=== PATIENT | male | born 1955 | race Caucasian/White ===

== ENCOUNTER 2024-05-10 01:14 | Emergency (ER) | payer MEDICARE, OTHER ==
[2024-05-10] MEDS ORDERED: NA CHLORIDE 0.9% 2,000 ML ONE (02:05)
[2024-05-10] MEDS ORDERED: NA CHLORIDE 0.9% 100 ML ONE (02:05)
[2024-05-10] MEDS ORDERED: Meropenem 1000 MG/VIAL IV ONE (02:05)
[2024-05-10 02:39] LABS: Absolute Basophils 0.1 K/uL (0-0.5); Absolute Lymphocytes (CBC) 1.5 K/uL (0.7-4.9); Absolute Monocytes 1.2 K/uL (0.1-1.3); Absolute Neutrophil 7.2 K/uL (1.8-8.0); Basophils % 0.7 % (0-1.3); Eosinophils % 0.5 % (0-4.4); Hematocrit 24.4 % (39.6-49.0); Hemoglobin 8.4 g/dL (13.6-17.9); Lymphocytes % 14.5 % (15.3-44.8); MCH 31.9 pg (27.0-35.0); MCHC 34.3 g/dL (32.0-36.0); MCV 93.2 fL (80-100); MPV 6.3 fL (7.6-11.3); Monocytes % 11.9 % (3.3-12.3); Neutrophils % 72.4 % (41.7-73.7); Nucleated Red Blood Cells % 0.1 % (0-0); Platelets 279 thou/uL (152-406); RBC Red Blood Cell Count 2.62 M/uL (4.33-5.43); Red Cell Distribution Width 19.8 % (12.1-15.2)
[2024-05-10 02:43] LABS: PT Prothrombin Time 13.5 SECONDS (9.4-12.5); PTT, Activated Partial Thromb 32.7 SECONDS (24.3-36.9); Protime INR 1.21
[2024-05-10 02:49] LABS: Albumin 1.7 g/dL (3.4-5.0); Albumin/Globulin Ratio 0.3 (1.1-1.8); Anion Gap 6.1 mEq/L (5.0-15.0); Bilirubin Total 0.7 mg/dL (0.2-1.0); Globulin 6.4 g/dL (2.3-3.5); Potassium 4.1 mEq/L (3.5-5.1); Protein, Total 8.1 g/dL (6.4-8.2)
[2024-05-10 03:32] LABS: Specific Gravity 1.017 (1.005-1.030); Sqamous Epithelial None Seen /HPF (None Seen); Urine Bacteria None Seen /HPF (<20); Urine Bilirubin NEGATIVE (Negative); Urine Blood 3+ (OVER) (Negative); Urine Clarity Extremely Turbid (Clear); Urine Color Brown (Yellow); Urine Crystals Unidentified Moderate /HPF (None Seen); Urine Culture Reflex Order NOT NEEDED; Urine Glucose NEGATIVE (Negative); Urine Ketones NEGATIVE (Negative); Urine Microscopic Reflex YN ORDER UMIC; Urine Nitrite NEGATIVE (Negative); Urine Protein 2+ (Negative); Urine RBC >50 /HPF (None Seen); Urine Urobilinogen Normal (Normal); Urine pH 6.5 (5.0-7.0)
[2024-05-10] MEDS ORDERED: METOCLOPRAMIDE 10 MG/2mL INJ ONE (04:21)
[2024-05-10] MEDS ORDERED: HYDROMORPHONE HCL 0.5 MG/0.5 ML INJ ONE (04:21)
--- NOTE | 2024-05-10 06:07 | ER ---
Nurse's Notes [facility] Name: Shine Castañeda Age: 68 yrs Sex: Male : 1955 Arrival Date: 05/10/2024 Time: 01:14 Bed 8 Private MD: Diagnosis: Left groin postoperative wound dehiscence, chronic scrotal rash and ulcerations, scrotal cellulitis, stage I decubitus sacral ulcer, postoperative complications, bleeding from postoperative incision, acute hematuria Presentation: 05/10 01:17 Chief complaint: EMS states: 68 YEAR OLD MALE COMING FROM [facility]. ha1 NURSE AT THE FACILITY REPORTS HE WAS FOUND ON THE FLOOR SITTING ON A LOT OF BLOOD, PATIENT GOT CLEAN BUT THE SOURCE OF BLEEDING WAS NOT FOUND. SWELLING AND SKIN TEAR AT THE SCROTUM. 01:17 Coronavirus screen: Vaccine status: Patient reports being unvaccinated. Ebola Screen: ha1 No symptoms or risks identified at this time. Initial Sepsis Screen: Does the patient meet any 2 criteria? No. Patient's initial sepsis screen is negative. Does the patient have a suspected source of infection? No. Patient's initial sepsis screen is negative. Risk Assessment: Do you want to hurt yourself or someone else? Patient reports no desire to harm self or others. Onset of symptoms was May 10, 2024. 01:17 Method Of Arrival: EMS: [facility] ha1 01:17 Acuity: ROWAN 3 ha1 Triage Assessment: 01:17 General: Appears uncomfortable, Behavior is calm, cooperative. Pain: Complains of pain ha1 in buttocks and pelvis Pain does not radiate. Pain currently is 8 out of 10 on a pain scale. Quality of pain is described as aching. Neuro: Level of Consciousness is awake, alert, obeys commands, Oriented to person, place, time, situation. Cardiovascular: Capillary refill < 3 seconds Patient's skin is warm and dry. Respiratory: Airway is patent Respiratory effort is even, unlabored, Respiratory pattern is regular, symmetrical, Breath sounds with crackles bilaterally. GI: Abdomen is round. : Harrington in place to gravity drainage RED URINE IN HARRINGTON BAG Lesions noted Swelling noted at urinary meatus on penis on scrotum. Derm: Wound noted groin. Musculoskeletal: Historical: - Allergies: :17 No Known Allergies; ha1 - Home Meds: 01:35 Bactrim DS Oral [Active]; Aspirin Oral [Active]; enoxaparin 40 mg/0.4 mL subcutaneous ha1 Syringe [Active]; Levaquin Oral 750 mg [Active]; Lipitor 80 mg Oral tablet [Active]; Protonix 40 mg Oral granules delayed release for susp packet [Active]; [id number] [Active]; - PMHx: 01:17 Coronary atherosclerosis; Abdominal aortic aneurysm; Chronic obstructive lung disease; ha1 Cellulitis; OF GROIN; UTI; HEMATURIA; Hypertensive disorder; PERITONITIS; Cirrhosis of liver; Anemia; Pneumonia; - PSHx: 01:17 BILATERAL AORTA FEMORAL BYPASS; Colostomy; ha1 - Immunization history:: Adult Immunizations not up to date. - Infectious Disease History:: Denies. - Social history:: Smoking status: Patient/guardian denies using tobacco, the patient reports quitting approximately 1 years ago. - Family history:: not pertinent. Screenin:41 [facility] ED Fall Risk Assessment (Adult) History of falling in the last 3 months, bm8 including since admission Yes- fall prone (multiple falls) (3 pts) Confusion or Disorientation No (0 pts) Intoxicated or Sedated No (0 pts) Impaired Gait Yes (1 pt) Mobility Assist Device Used Yes (1 pt) Altered Elimination Yes (1 pt) Score/Fall Risk Level 3 or more points = High Risk Oriented to surroundings, Maintained a safe environment, Educated pt \T\ family on fall prevention, incl call for assistance when getting out of bed, Assessed \T\ reinforced patient's understanding of fall precautions, Hourly rounding (assess needs \T\ fall precautionary measures) done, Used ambulatory aids as needed (educated on \T\ assisted with), Used gait belt as appropriate Implemented a Fall Risk Plan of Care. Abuse screen: Denies threats or abuse. Nutritional screening: No deficits noted. Tuberculosis screening: No symptoms or risk factors identified. Assessment: 01:17 Reassessment: see triage assessment. ha1 02:00 Reassessment: Patient and/or family updated on plan of care and expected duration. Pain ha1 level reassessed. 02:57 Reassessment: Patient appears in no apparent distress at this time. No changes from bm8 previously documented assessment. Patient and/or family updated on plan of care and expected duration. Pain level reassessed. Patient is alert, oriented x 3, equal unlabored respirations, skin warm/dry/pink. 04:36 General: Appears in no apparent distress. comfortable, Behavior is calm, cooperative, bm8 appropriate for age. Pain: Denies pain. Neuro: No deficits noted. Level of Consciousness is awake, alert, obeys commands, Oriented to person, place, time, situation, Appropriate for age. Cardiovascular: Denies chest pain, Capillary refill < 3 seconds Patient's skin is warm and dry. Respiratory: Airway is patent Respiratory effort is even, unlabored, Respiratory pattern is regular, symmetrical, Breath sounds are coarse bilaterally. GI: post sx abd wound present, and was redressed. : No signs and/or symptoms were reported regarding the genitourinary system. EENT: No signs and/or symptoms were reported regarding the EENT system. Derm: Wound noted Other: post sx incisions site along outer abd and middline abd. Musculoskeletal: No signs and/or symptoms reported regarding the musculoskeletal system. 05:52 Reassessment:. bm8 06:18 Reassessment: report given to receiving nurse at [facility]. ANGELA Georges. ha1 Vital Signs: 01:17 BP 151 / 72; Pulse 86; Resp 19 S; Temp 99.4(O); Pulse Ox 99% on R/A; Weight 65.5 kg ha1 (M); Height 5 ft. 8 in. ; 01:40 BP 140 / 72; Pulse 87; Resp 87 S; Pulse Ox 100% on R/A; ha1 02:00 BP 152 / 63; Pulse 86; Resp 17 S; Pulse Ox 100% on R/A; ha1 02:57 BP 166 / 72; Pulse 87; Resp 17; Pulse Ox 100% ; Pain 4/10; bm8 03:30 BP 158 / 73; Pulse 90; Resp 17 S; Pulse Ox 99% on R/A; ha1 04:36 BP 134 / 75; Pulse 88; Resp 18; Temp 99.2; Pulse Ox 100% ; Pain 0/10; bm8 05:00 BP 153 / 62; Pulse 85; Resp 17 S; Pulse Ox 97% on R/A; ha1 05:52 BP 130 / 67; Pulse 84; Resp 17; Temp 99.2; Pulse Ox 97% on R/A; Pain 0/10; bm8 06:27 BP 135 / 85; Pulse 74; Resp 18; Temp 99; Pulse Ox 98% ; Pain 0/10; bm8 01:17 Body Mass Index 21.96 (65.50 kg, 172.72 cm) ha1 02:57 Pain Scale: Adult bm8 04:36 Pain Scale: Adult bm8 05:52 Pain Scale: Adult bm8 06:27 Pain Scale: Adult bm8 [place] Coma Score: 01:41 Eye Response: spontaneous(4). Motor Response: obeys commands(6). Verbal Response: bm8 oriented(5). Total: 15. 02:57 Eye Response: spontaneous(4). Motor Response: obeys commands(6). Verbal Response: bm8 oriented(5). Total: 15. 03:59 Eye Response: spontaneous(4). Motor Response: obeys commands(6). Verbal Response: sp4 oriented(5). Total: 15. 04:36 Eye Response: spontaneous(4). Motor Response: obeys commands(6). Verbal Response: bm8 oriented(5). Total: 15. 05:52 Eye Response: spontaneous(4). Motor Response: obeys commands(6). Verbal Response: bm8 oriented(5). Total: 15. ED Course: 01:17 Patient arrived in ED. ha1 01:24 Triage completed. ha1 01:27 Harrington cath inserted, using sterile technique, Harrington cath removed intact, balloon bm8 deflated. 01:37 Gama Hightower, RN is Primary Nurse. bm8 01:38 No provider procedures requiring assistance completed. Inserted saline lock: 18 gauge bm8 in left antecubital area, using aseptic technique. ,using aseptic technique. Ultrasound guided Blood collected. Flushed with 10 mL NS. 01:41 Patient has correct armband on for positive identification. Placed in gown. Bed in low bm8 position. Call light in reach. Side rails up X2. Client placed on continuous cardiac and pulse oximetry monitoring. NIBP monitoring applied. bunch trimmer mold on. Pulse ox on. NIBP on. Door closed. Noise minimized. Warm blanket given. Pillow given. Verbal reassurance given. Head of bed elevated. 01:41 Arm band placed on right wrist. bm8 01:48 Serg Moran MD is Attending Physician. al5 02:05 Blood Culture Adult (2) Sent. ha1 02:05 CBC with Diff Sent. ha1 02:05 CMP Sent. ha1 02:05 Lactate w/ 2H reflex if indic. Sent. ha1 02:05 Protime (+inr) Sent. ha1 02:05 Ptt, Activated Sent. ha1 02:15 Second set of blood cultures drawn by me, Urine collected: clean catch specimen, gemma bm8 blood, EKG done, by ED staff, reviewed by Serg Moran MD. 02:59 Harrington cath inserted, using sterile technique, 16 Fr., by ED staff, balloon inflated, to bm8 gravity drainage, urine specimen collected. Patient tolerated well. 03:01 Chest Single View XRAY In Process Unspecified. EDMS 03:04 X-ray completed. Portable x-ray completed in exam room. Patient tolerated procedure mh1 well. 04:08 Dressings: ABD pad X 2; epigastric area, umbilical area and suprapubic area. ty 04:18 CT Chest Abdomen Pelvis W/O Contrast In Process Unspecified. EDMS 06:21 Wound care: to decubitus located on abdomen and pelvis was cleaned with soap and water, bm8 dressed with 4X4s, Patient tolerated well. 06:23 IV discontinued, intact, bleeding controlled, No redness/swelling at site. Pressure bm8 dressing applied. 06:23 Provided Education on: post er care, and need for constant wound care. bm8 Administered Medications: 02:16 Drug: Meropenem IV 1 grams IV at calculated rate once; (mix in NS 100 mL) Route: IV; bm8 Rate: calculated rate; Site: left antecubital; 03:00 Follow up: Response: No adverse reaction; IV Status: Completed infusion; IV Intake: bm8 100ml 02:19 Drug: NS 0.9% IV (30 ml/kg) 30 ml/kg IV at bolus once; Sepsis Protocol Route: IV; Rate: bm8 bolus; Site: left antecubital; 05:53 Follow up: Response: No adverse reaction; IV Status: Completed infusion; IV Intake: bm8 2000ml 04:35 Drug: metoCLOPramide IVP 10 mg IVP once; over 1 to 2 minutes Route: IVP; Site: left bm8 antecubital; 05:53 Follow up: Response: No adverse reaction bm8 04:36 Drug: HYDROmorphone IVP 0.5 mg IVP once Route: IVP; Site: left antecubital; bm8 05:53 Follow up: Response: No adverse reaction bm8 Medication: 01:41 VIS not applicable for this client. bm8 Intake: 03:00 IV: 100ml; Total: 100ml. bm8 05:53 IV: 2000ml; Total: 2100ml. bm8 Outcome: 06:07 Discharge ordered by MD. mccollum 06:21 Discharged to [facility]. Report called to ANGELA Georges bm8 06:21 Condition: stable 06:21 Discharge instructions given to patient, [facility], Instructed on discharge instructions, follow up and referral plans. no drinking with medication, no driving heavy equipment, medication usage, safety practices, wound care, Demonstrated understanding of instructions, follow-up care, medications, 06:27 Patient left the ED. bm8 Signatures: Dispatcher [employer] EDMS Kenyatta Tineo 1 Rosario Saunders RN RN ha1 Serg Moran MD MD sp4 Gold Arteaga Brad RN RN bm8 Jammie Owen RN RN al5
--- NOTE | 2024-05-10 06:07 | EDPHYS ---
Physician Documentation [facility] Name: Shine Castañeda Age: 68 yrs Sex: Male : 1955 Arrival Date: 05/10/2024 Time: 01:14 Bed 8 Private MD: ED Physician Serg Moran HPI: 05/10 03:59 This 68 yrs old Male presents to ER via EMS with complaints of Rectal sp4 Bleeding. 03:59 This is 68-year-old male who presents from half-way with complaint of some sort of sp4 bleeding.. care home personnel were not able to report where the bleeding is from. Patient has history of COPD, hypertension, stroke, abdominal aortic aneurysm, gastrostomy tube, recent hospitalization at [facility] for abdominal aortic aneurysm with leak, history of multiple vascular surgery, history of colostomy, history of scrotal edema indwelling Fernandez catheter scrotal excoriations.. Further medical history includes history of scrotal cellulitis, UTI, cirrhosis, ascites, AAA, COPD, coronary artery disease, hypertension. Last admission to [facility] 05/01/2024 for scrotal cellulitis. Patient is full code. 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 History of aortobifemoral bypass graft, aortorenal bypass, bilateral lower extremity EIA, BALL WINDER, PFA, endarterectomy patch angioplasty, inferior mesenteric artery reimplantation complicated by ischemic colitis. Required exploratory laparotomy with creation of colostomy and finding of necrotic rectosigmoid colon. History of pneumonia, MAISHA, shock liver, hematuria, scrotal swelling,. Patient's medications include aspirin 81 daily, Bactrim twice daily, Sinex MAR daily, enoxaparin daily, Levaquin 750 daily, Lipitor 80 mg daily, metoprolol twice daily, nicotine daily, polyethylene glycol every 12 and Protonix daily. The patient has no idea why he is here. Patient states he was sent here by the half-way. Patient is a resident of [facility], primary MD is Dr. Michael Salgado. Medications include at this time aspirin daily, atorvastatin daily, cefdinir 300 twice daily, metoprolol 25 twice daily, nicotine daily, Protonix daily, wound care daily,. Historical: - Allergies: 01:17 No Known Allergies; ha1 - Home Meds: 01:35 Bactrim DS Oral [Active]; Aspirin Oral [Active]; enoxaparin 40 mg/0.4 mL subcutaneous ha1 Syringe [Active]; Levaquin Oral 750 mg [Active]; Lipitor 80 mg Oral tablet [Active]; Protonix 40 mg Oral granules delayed release for susp packet [Active]; [id number] [Active]; - PMHx: 01:17 Coronary atherosclerosis; Abdominal aortic aneurysm; Chronic obstructive lung disease; ha1 Cellulitis; OF GROIN; UTI; HEMATURIA; Hypertensive disorder; PERITONITIS; Cirrhosis of liver; Anemia; Pneumonia; - PSHx: 01:17 BILATERAL AORTA FEMORAL BYPASS; Colostomy; ha1 - Immunization history:: Adult Immunizations not up to date. - Infectious Disease History:: Denies. - Social history:: Smoking status: Patient/guardian denies using tobacco, the patient reports quitting approximately 1 years ago. - Family history:: not pertinent. ROS: 03:59 Constitutional: Negative for fever, chills, and weight loss, positive for bleeding sp4 03:59 All other systems are negative, Exam: 03:59 Constitutional: Chronically ill-appearing male who is physically debilitated, has left sp4 upper quadrant abdominal colostomy, extensive postoperative incision with gabriela mid abdomen from recent aorta femoral bypass graft. Patient also has bilateral groin wound dehiscence, scrotal swelling, gross hematuria and urinary catheter. Patient has additional findings on exam of moderate physical debility COPD habitus, no signs of rectal bleeding. Head/Face: Normocephalic, atraumatic. Eyes: Pupils equal round and reactive to light, extra-ocular motions intact. Lids and lashes normal. Conjunctiva and sclera are not injected. Cornea within normal limits. Periorbital areas with no swelling, redness, or edema. ENT: Nares patent. No nasal discharge, no septal abnormalities noted. Tympanic membranes are normal and external auditory canals are clear. Oropharynx with no redness, swelling, or masses, exudates, or evidence of obstruction, uvula midline. Mucous membranes moist. Neck: Trachea midline, no thyromegaly or masses palpated, and no cervical lymphadenopathy. Supple, full range of motion without nuchal rigidity, or vertebral point tenderness. Chest/axilla: Normal chest wall appearance and motion. Nontender with no deformity. No lesions are appreciated. Cardiovascular: Regular rate and rhythm with a normal S1 and S2. No gallops, murmurs, or rubs. Normal PMI, no JVD. No pulse deficits. Respiratory: Lungs have equal breath sounds bilaterally, clear to auscultation and percussion. No rales, rhonchi or wheezes noted. No increased work of breathing, no retractions or nasal flaring. Abdomen/GI: Soft, with normal bowel sounds. Extended postoperative incision with gabriela in place, some bilateral groin wound dehiscence, left upper quadrant abdominal colostomy, rectal exam reveals no sign of rectal bleeding, indwelling Fernandez catheter contains gross hematuria Back: No spinal tenderness. No costovertebral tenderness. Male : There is scrotal swelling with indwelling Fernandez catheter positive gross hematuria Skin: Warm, dry with normal turgor. Normal color with no rashes, no lesions, and no evidence of cellulitis. MS/ Extremity: Pulses equal, no cyanosis. Neurovascular intact. Full, normal range of motion. Neuro: Awake and alert, GCS 15, oriented to person, place, time, and situation. Cranial nerves II-XII grossly intact. Motor strength 5/5 in all extremities. Sensory grossly intact. Psych: Awake, alert, with orientation to person, place and time. Behavior, mood, and affect are within normal limits 04:15 ECG was reviewed by the Attending Physician. EKG at 0 245 sp4 Vital Signs: 01:17 BP 151 / 72; Pulse 86; Resp 19 S; Temp 99.4(O); Pulse Ox 99% on R/A; Weight 65.5 kg ha1 (M); Height 5 ft. 8 in. ; 01:40 BP 140 / 72; Pulse 87; Resp 87 S; Pulse Ox 100% on R/A; ha1 02:00 BP 152 / 63; Pulse 86; Resp 17 S; Pulse Ox 100% on R/A; ha1 02:57 BP 166 / 72; Pulse 87; Resp 17; Pulse Ox 100% ; Pain 4/10; bm8 03:30 BP 158 / 73; Pulse 90; Resp 17 S; Pulse Ox 99% on R/A; ha1 04:36 BP 134 / 75; Pulse 88; Resp 18; Temp 99.2; Pulse Ox 100% ; Pain 0/10; bm8 05:00 BP 153 / 62; Pulse 85; Resp 17 S; Pulse Ox 97% on R/A; ha1 05:52 BP 130 / 67; Pulse 84; Resp 17; Temp 99.2; Pulse Ox 97% on R/A; Pain 0/10; bm8 06:27 BP 135 / 85; Pulse 74; Resp 18; Temp 99; Pulse Ox 98% ; Pain 0/10; bm8 01:17 Body Mass Index 21.96 (65.50 kg, 172.72 cm) ha1 02:57 Pain Scale: Adult bm8 04:36 Pain Scale: Adult bm8 05:52 Pain Scale: Adult bm8 06:27 Pain Scale: Adult bm8 Mikayla Coma Score: 01:41 Eye Response: spontaneous(4). Motor Response: obeys commands(6). Verbal Response: bm8 oriented(5). Total: 15. 02:57 Eye Response: spontaneous(4). Motor Response: obeys commands(6). Verbal Response: bm8 oriented(5). Total: 15. 03:59 Eye Response: spontaneous(4). Motor Response: obeys commands(6). Verbal Response: sp4 oriented(5). Total: 15. 04:36 Eye Response: spontaneous(4). Motor Response: obeys commands(6). Verbal Response: bm8 oriented(5). Total: 15. 05:52 Eye Response: spontaneous(4). Motor Response: obeys commands(6). Verbal Response: bm8 oriented(5). Total: 15. MDM: 01:53 Patient medically screened. sp4 05:40 ED course: IMPRESSION: 1. Large volume 4 quadrant ascites new from 04/03/2024. Hepatic sp4 morphology is cirrhotic and moderate splenomegaly are present. 2. Wall thickening of the esophagus, stomach, and portions of large may be secondary to congestive enteropathy or other cause of fluid 3rd spacing. 3. Recent appearing laparotomy changes with left lower quadrant colostomy new from 04/02/2024. No apparent complication. 4. Interval aortobiiliac stent placement. 5. Interval improvement of previous pulmonary nodules and small cavitations. Noncalcified pulmonary nodules measuring up to 6 mm remaining. Outpatient follow-up imaging may be appropriate. 6. No other acute findings or significant interval change from prior exam within the exam limitations. Additional chronic and incidental findings above. Electronically signed by: Xavier Stephens MD 05/10/2024 05:35 AM. 06:03 ED course: CT - EXAMINATION: CT CHESTABDOMEN PELVIS WITHOUT IV CONTRAST INDICATION: sp4 Male, 68 years old, ABDOMINAL DISTENTION COMPARISON(S): CT abdomen/pelvis 04/03/2024, CT chest 06/27/2023 TECHNIQUE: CT acquisition of the chest, abdomen and pelvis without contrast. Coronal and sagittal reformatted images provided. This exam was performed according to departmental dose-optimization program which includes automated exposure control, adjustment of the mA and/or kV according to patient size, and/or use of iterative reconstruction technique. FINDINGS: SUPPORTIVE DEVICES: Fernandez catheter in place. LOWER NECK: Unremarkable. Lack of intravenous contrast limits evaluation of the abdominal and pelvic viscera and vascular structures. Diffuse ascites limits assessment for acute abdominal pelvic inflammation. CHEST: Mediastinum/aleisha: Aortic atherosclerosis without aneurysm. The pulmonary vasculature is unremarkable. Calcified right hilar lymph nodes. Mild wall thickening of the mid to distal esophagus. Heart: Normal size. No pericardial thickening or effusion. Severe coronary artery calcifications. Lungs: No acute consolidation. Bowel scarring/atelectasis within both posterior lungs. Interval improvement and/or resolution of multiple previous solid and small cavitary nodules from 2022, with the largest remaining nodule within the lingula measuring unchanged at 6 mm (axial image 32/146). Bilateral calcified granulomas. Central airways are clear. Pleural Space: No pleural effusion or pneumothorax. ABDOMEN AND PELVIS: Liver: Diffusely nodular contour. No obvious focal lesion. Gallbladder and bile ducts: Circumferential gallbladder wall thickening with tiny layering material near the neck. No obvious ductal dilation. Pancreas: Surrounded by fluid. Spleen: Moderately enlarged. Punctate inferior calcification. Adrenal glands: Normal. Kidneys and ureters: No evidence of acute obstruction. Unchanged small right renal parenchymal calcification posteriorly., Right renal cyst and severe left renal atrophy. Bladder: Collapsed around a Fernandez catheter with circumferential wall prominence. Reproductive organs: Diffuse scrotal edema. GI tract: Wall thickening of the distal esophagus, stomach, and a majority of the large bowel to include the rectum. Postsurgical change of left lower quadrant colostomy without evidence of complication. No bowel obstruction. Distal colonic diverticulosis. Peritoneum: Large volume 4 quadrant ascites. Diffuse mesenteric edema. No evidence of free air or fluid collection. Vessels: Ulceration and morphology of the previous infrarenal aortic aneurysm with evidence of aortobiiliac stent placement. Severe atherosclerosis throughout. Lymph nodes: No evident adenopathy. Abdominal wall: Ventral laparotomy change with skin gabriela in place. MUSCULOSKELETAL: No acute osseous abnormality. Degenerative change of the spine and pelvis. Small intramuscular lipoma within the left thigh adductor compartment. IMPRESSION: 1. Large volume 4 quadrant ascites new from 04/03/2024. Hepatic morphology is cirrhotic and moderate splenomegaly are present. 2. Wall thickening of the esophagus, stomach, and portions of large may be secondary to congestive enteropathy or other cause of fluid 3 rd spacing. 3. Recent appearing laparotomy changes with left lower quadrant colostomy new from 04/02/2024. No apparent complication. 4. Interval aortoiliac stent placement. 5. Interval improvement of previous pulmonary nodules and small cavitations. Noncalcified pulmonary nodules measuring up to 6 mm remaining. Outpatient follow-up imaging may be appropriate. 6. No other acute findings or significant interval change from prior exam within the exam limitations. Additional chronic and incidental findings above.. 06:04 Differential diagnosis: hemorrhoids, fissure, abscess, pilonidal cyst, condyloma. Data sp4 reviewed: vital signs, nurses notes, EMS record, old medical records, radiologic studies, CT scan. Consideration of Admission/Observation Escalation of care including admission/observation considered. ED course: Patient has several postoperative incisions, some dehiscence and moderate penile scrotal rash with chronic wounds. Likely bleeding from the wounds. Wound care was provided to the patient and patient is stable for discharge back to assisted living facility. This time no emergent issues identified. Patient is chronically ill and postoperative chronic wound dehiscence, as well as colostomy, as well as scrotal rash and chronic ulcers, as well as decubitus ulcer.. Patient should continue his p.o. antibiotics namely cefdinir. Further care deferred to assisted living nursing staff. . 06:08 ED course: EXAM: XR Chest, 1 View CLINICAL HISTORY: The patient is 68 years old and is sp4 Male; sepsis TECHNIQUE: Frontal view of the chest. COMPARISON: No relevant prior studies available. FINDINGS: Lungs: Unremarkable. No consolidation. Pleural space: Unremarkable. No pneumothorax. Heart: Unremarkable. Mediastinum: Unremarkable. Normal mediastinal contour. Bones/joints: No acute findings. IMPRESSION: No acute findings in the chest. . 05/10 02:00 Order name: Blood Culture Adult (2) [facility] 05/10 02:00 Order name: CBC with Diff; Complete Time: 03:48 [facility] 05/10 02:00 Order name: CMP; Complete Time: 03:48 [facility] 05/10 02:00 Order name: Lactate w/ 2H reflex if indic.; Complete Time: 03:48 [facility] 05/10 02:00 Order name: Protime (+inr); Complete Time: 03:48 [facility] 05/10 02:00 Order name: Ptt, Activated; Complete Time: 03:48 [facility] 05/10 02:00 Order name: Urinalysis w/ reflexes; Complete Time: 03:48 [facility] 05/10 02:53 Order name: Glucose, Ancillary Testing; Complete Time: 03:48 [facility] 05/10 02:00 Order name: Chest Single View XRAY [facility] 05/10 03:57 Order name: CT Chest Abdomen Pelvis W/O Contrast [facility] 05/10 02:00 Order name: Accucheck; Complete Time: 03:00 [facility] 05/10 02:00 Order name: Cardiac monitoring; Complete Time: 02:16 [facility] 05/10 02:00 Order name: Cath; Complete Time: 03:00 [facility] 05/10 02:00 Order name: EKG - Nurse/Tech; Complete Time: 03:00 [facility] 05/10 02:00 Order name: IV Saline Lock - Large Bore; Complete Time: 02:04 [facility] 05/10 02:00 Order name: Labs collected and sent; Complete Time: 02:16 [facility] 05/10 02:00 Order name: O2 Per Protocol; Complete Time: 02:16 [facility] 05/10 02:00 Order name: O2 Sat Monitoring; Complete Time: 02:16 [facility] 05/10 02:00 Order name: Vital Signs; Complete Time: 02:16 [facility] 05/10 06:02 Order name: Wound Care; Complete Time: 06:21 sp4 EC:15 Rate is 89 beats/min. Rhythm is regular, Normal Sinus Rhythm with Occasional PVCs. QRS sp4 [place] is Normal. [place] interval is normal. QRS interval is normal. QT interval is normal. No Q waves. T waves are Normal. No ST changes noted. Clinical impression: No evidence of ischemia. Interpreted by me. Reviewed by me. Administered Medications: 02:16 Drug: Meropenem IV 1 grams IV at calculated rate once; (mix in NS 100 mL) Route: IV; bm8 Rate: calculated rate; Site: left antecubital; 03:00 Follow up: Response: No adverse reaction; IV Status: Completed infusion; IV Intake: bm8 100ml 02:19 Drug: NS 0.9% IV (30 ml/kg) 30 ml/kg IV at bolus once; Sepsis Protocol Route: IV; Rate: bm8 bolus; Site: left antecubital; 05:53 Follow up: Response: No adverse reaction; IV Status: Completed infusion; IV Intake: bm8 2000ml 04:35 Drug: metoCLOPramide IVP 10 mg IVP once; over 1 to 2 minutes Route: IVP; Site: left bm8 antecubital; 05:53 Follow up: Response: No adverse reaction bm8 04:36 Drug: HYDROmorphone IVP 0.5 mg IVP once Route: IVP; Site: left antecubital; bm8 05:53 Follow up: Response: No adverse reaction bm8 Disposition Summary: 05/10/24 06:07 Discharge Ordered Notes: Continue all home medications. Location: Home sp4 Problem: new sp4 Symptoms: have improved sp4 Condition: Stable sp4 Diagnosis - Left groin postoperative wound dehiscence, chronic scrotal rash and ulcerations, sp4 scrotal cellulitis, stage I decubitus sacral ulcer, postoperative complications, bleeding from postoperative incision, acute hematuria Followup: sp4 - With: Private Physician - When: 7 - 10 days - Reason: Recheck today's complaints Discharge Instructions: - Discharge Summary Sheet sp4 - Wound Care, Adult sp4 Forms: - SBAR form ha1 - Patient Portal Instructions sp4 Signatures: Dispatcher [employer] Rosario Zuñiga RN RN ha1 Serg Moran MD MD sp4 Gama Hightower RN RN bm8 Corrections: (The following items were deleted from the chart) 02:00 02:00 BLOOD CULTURE*+BA.LAB.BRZ ordered. EDMS EDMS 02:00 02:00 CBC+H.LAB.BRZ ordered. EDMS EDMS 02:00 02:00 COMPREHENSIVE METABOLIC PANEL+C.LAB.BRZ ordered. EDMS EDMS 02:00 02:00 LACTATE+C.LAB.BRZ ordered. EDMS EDMS 02:00 02:00 PROTIME (+INR)+COAG.LAB.BRZ ordered. EDMS EDMS 02:00 02:00 PTT, ACTIVATED+COAG.LAB.BRZ ordered. EDMS EDMS 02:00 02:00 Urinalysis+U.LAB.BRZ ordered. EDMS EDMS 02:00 02:00 Chest Single View+RAD.RAD.BRZ ordered. EDMS EDMS
[2024-05-10 06:50] VITALS: BP 135/85; TEMP 99; O2SAT 98
--- NOTE | 2024-05-11 10:01 | EKG ---
Test Date: 2024-05-10 Test Time: 02:45:24 Tangled Yarn Spool Straightener: AGUS MEASUREMENT RESULTS: Intervals: Rate: 89 [place]: 168 QRSD: 92 QT: 390 QTc: 474 [place]: P: 77 [place]: 168 QRS: 86 T: 64 INTERPRETIVE STATEMENTS: Sinus rhythm with occasional premature ventricular complexes and premature atrial complexes Otherwise normal ECG No previous ECG available for comparison Electronically Signed On 05-11-24 10:00:22 CDT by Enrique Islas
--- NOTE | 2024-05-11 13:11 | RAD REPORT ---
EXAM DESCRIPTION: CT - Chest Abd Pelvis Wo Con - 05/10/2024 6:42 am CLINICAL HISTORY: Male, 68 years old, ABDOMINAL DISTENTION COMPARISON: CT abdomen/pelvis 04/03/2024, CT chest 06/27/2023 TECHNIQUE: CT acquisition of the chest, abdomen and pelvis without contrast. Coronal and sagittal ref ormatted images provided. This exam was performed according to departmental dose-optimization program which includes automated exposure control, adjustment of the mA and/or kV according to patient size, and/or use of iterative reconstruction technique. FINDINGS: SUPPORTIVE DEVICES: Fernandez catheter in place. LOWER NECK: Unremarkable. Lack of intravenous contrast limits evaluation of the abdominal and pelvic viscera and vascular struc tures. Diffuse ascites limits assessment for acute abdominal pelvic inflammation. CHEST: Mediastinum/aleisha: Aortic atherosclerosis without aneurysm. The pulmonary vasculature is unremarkable. Calcified right hilar lymph nodes. Mild wall thickening of the mid to distal esophagus. Heart: Normal size. No pericardial thickening or effusion. Severe coronary artery calcifications. Lungs: No acute consolidation. Bowel scarring/atelectasis within both posterior lungs. Interval impro vement and/or resolution of multiple previous solid and small cavitary nodules from 2022, with the la rgest remaining nodule within the lingula measuring unchanged at 6 mm (axial image 32/146). Bilateral calcified granulomas. Central airways are clear. Pleural Space: No pleural effusion or pneumothorax. ABDOMEN AND PELVIS: Liver: Diffusely nodular contour. No obvious focal lesion. Gallbladder and bile ducts: Circumferential gallbladder wall thickening with tiny layering material n ear the neck. No obvious ductal dilation. Pancreas: Surrounded by fluid. Spleen: Moderately enlarged. Punctate inferior calcification. Adrenal glands: Normal. Kidneys and ureters: No evidence of acute obstruction. Unchanged small right renal parenchymal calcif ication posteriorly., Right renal cyst and severe left renal atrophy. Bladder: Collapsed around a Fernandez catheter with circumferential wall prominence. Reproductive organs: Diffuse scrotal edema. GI tract: Wall thickening of the distal esophagus, stomach, and a majority of the large bowel to incl ude the rectum. Postsurgical change of left lower quadrant colostomy without evidence of complication . No bowel obstruction. Distal colonic diverticulosis. Peritoneum: Large volume 4 quadrant ascites. Diffuse mesenteric edema. No evidence of free air or flu id collection. Vessels: Ulceration and morphology of the previous infrarenal aortic aneurysm with evidence of aortob iiliac stent placement. Severe atherosclerosis throughout. Lymph nodes: No evident adenopathy. Abdominal wall: Ventral laparotomy change with skin gabriela in place. MUSCULOSKELETAL: No acute osseous abnormality. Degenerative change of the spine and pelvis. Small int ramuscular lipoma within the left thigh adductor compartment. IMPRESSION: 1. Large volume 4 quadrant ascites new from 04/03/2024. Hepatic morphology is cirrhotic and moderate splenomegaly are present. 2. Wall thickening of the esophagus, stomach, and portions of large may be secondary to congestive enteropathy or other cause of fluid 3rd spacing. 3. Recent appearing laparotomy changes with left lower quadrant colostomy new from 04/02/2024. No ap parent complication. 4. Interval aortobiiliac stent placement. 5. Interval improvement of previous pulmonary nodules and small cavitations. Noncalcified pulmonary nodules measuring up to 6 mm remaining. Outpatient follow-up imaging may be appropriate. 6. No other acute findings or significant interval change from prior exam within the exam limitatio ns. Additional chronic and incidental findings above. Electronically signed by: Xavier Stephens MD 05/10/2024 05:35 AM CDT Due to temporary technical issues with the PACS/Fluency reporting system, reports are being signed by the in house radiologist without review as a courtesy to ensure prompt reporting. The interpreting r adiologist is fully responsible for the content of the report.
--- NOTE | 2024-05-11 13:22 | RAD REPORT ---
EXAM DESCRIPTION: RAD - Chest Single View - 05/10/2024 2:59 am CLINICAL HISTORY: The patient is 68 years old and is Male; sepsis TECHNIQUE: Frontal view of the chest. COMPARISON: No relevant prior studies available. FINDINGS: Lungs: Unremarkable. No consolidation. Pleural space: Unremarkable. No pneumothorax. Heart: Unremarkable. Mediastinum: Unremarkable. Normal mediastinal contour. Bones/joints: No acute findings. IMPRESSION: No acute findings in the chest. Electronically signed by: Brian Garcia MD 05/10/2024 03:41 AM CDT 8 Due to temporary technical issues with the PACS/Fluency reporting system, reports are being signed by the in house radiologist without review as a courtesy to ensure prompt reporting. The interpreting r adiologist is fully responsible for the content of the report.
== END 2024-05-10 06:27 | disposition home or self-care (01) ==
LOC: ER 01:14
DX: T81.31XA Disruption of external operation (surgical) wound, not elsewhere classified, initial encounter (principal); K91.840 Postprocedural hemorrhage of a digestive system organ or structure following a digestive system procedure; N49.2 Inflammatory disorders of scrotum; L89.151 Pressure ulcer of sacral region, stage 1; R31.9 Hematuria, unspecified; I10 Essential (primary) hypertension; J44.9 Chronic obstructive pulmonary disease, unspecified; Z93.3 Colostomy status; Z79.82 Long term (current) use of aspirin
CPT/HCPCS: 96365; 93005; 87040 ×2; 85025; 81001; 36415; 85610; 82947; 83605; 85730; 80053; 71250; 74176; 71045; 51702; 96375; 99285; 96366; J2765; J2185; J1170; J7030